=== PATIENT | male | born 1945 | race Caucasian/White ===

== ENCOUNTER 2018-11-07 01:32 | Emergency (ER) | payer MEDICARE, SELFPAY ==
[2018-11-07 01:33] VITALS: BP 147/78; PULSE 76; RESP 20; TEMP 36.6; O2SAT 97; BMI 27.6
--- NOTE | 2018-11-07 01:57 | RAD_ITS ---
STUDY: X-RAY - RIGHT ELBOW REASON FOR EXAM: Male, 72 years old. Trauma. Elbow pain TECHNIQUE: 3 view(s) of the elbow. COMPARISON: None. FINDINGS: Normal visualized humerus and ulna. Normal radiocapitellar and ulnotrochlear articulations. There is an old healed fracture of the proximal metaphysis of the radius. There is soft tissue swelling at the posterior aspect of the elbow suggesting a hematoma or olecranon bursitis. RAD/Elbow min 3 Views IMPRESSION: There is soft tissue swelling at the posterior aspect of the elbow suggesting a hematoma or olecranon bursitis. Electronically Signed: Adela Pal, at 2:43 EDT Tel , Service support ,
--- NOTE | 2018-11-07 01:58 | ED.DCSUM_ITS ---
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 It swelled quickly. He can move it well however and has no limitations. He is on no antiplatelet or anticoagulant medications. No other injuries. [id number]. - Past Medical History (1) Hyperlipidemia Status: Chronic (2) Hypertension Status: Chronic (3) BPH (benign prostatic hyperplasia) Status: Chronic Past Medical History - Allergies and Home Meds Allergies/Adverse Reactions: Allergies Antihistamines - Alkylamine Adverse Reaction (Verified 11/07/18 01:43) Other EXCESSIVE SLEEP W/ALL ANTIHISTAMINES Antihistamines - Ethanolamine Adverse Reaction (Verified 11/07/18 01:43) Other EXCESSIVE SLEEP W/ALL ANTIHISTAMINES Antihistamines - Ethylenediamine Adverse Reaction (Verified 11/07/18 01:43) Other EXCESSIVE SLEEP W/ALL ANTIHISTAMINES Antihistamines - Piperazine Adverse Reaction (Verified 11/07/18 01:43) Other EXCESSIVE SLEEP W/ALL ANTIHISTAMINES Antihistamines - Piperidine Adverse Reaction (Verified 11/07/18 01:43) Other EXCESSIVE SLEEP W/ALL ANTIHISTAMINES Primary Care Physician: Valentine Doctor,Out of [Primary Care Provider] - 1 Week if not improving Lives: Spouse/ Significant Other Smoking Status: Former smoker Review of Systems Musculoskeletal: Reports: Swelling, Extremity Pain. Denies: Neck pain, Back pain Skin: Denies: Rash, Wounds Neurological: Denies: Headache, Weakness, Numbness Physical Exam Vital Signs/Narrative: Vital Signs Temp Pulse Resp BP Pulse Ox 11/07/18 01:33 97.8 F 76 20 H 147/78 H 97 General: Well nourished, Well developed, - - Well-appearing, NAD Head: Normocephalic, Atraumatic Extremeties: Mild tenderness in the soft tissues overlying the right olecranon, which are boggy and swollen. No overlying erythema, rashes, lesions, or signs o f trauma. Skin intact. Full range of motion throughout elbow including extension, flexion, supination, pronation without any pain or bony tenderness. The rest of the right upper extremity exam is normal with no other areas of bony tenderness. Skin: Normal color, No rash, No Trauma Neurological: Alert, Oriented x3, Cranial nerves II-XII grossly intact, Normal Strength - Including median, radial, ulnar nerves right upper extremity, Normal Sensation Psychological: Normal affect, Normal Mood Diagnostic/Tx/Re-eval ED physician interpretation, right elbow x-ray 3 view: Negative for any bony abnormality. Olecranon soft tissue swelling. - Medical Decision Making Reassured this is likely a traumatic bursitis as opposed to a hematoma. Supportive care advised, he is holding an ice pack on it, he declines analgesics. I do not think he will need a sling for this unless the pain gets a lot worse. He will follow-up when he gets home. ED Disposition - Plan for ED Patient: Disposition: Home or Assisted Living Diagnosis: Traumatic bursitis Instructions: Bursitis, Elbow (Olecranon) Referrals: [facility] Doctor,Out of [Primary Care Provider] - 1 Week if not improving
[2018-11-07 02:25] VITALS: BP 143/79; PULSE 81; RESP 20; O2SAT 97
--- NOTE | 2018-11-07 02:26 | ED.RN ---
THIS NURSE REVIEWED D/C INSTRUCTIONS WITH PT. PT VERBALIZED UNDERSTANDING OF INSTRUCTIONS. PT DENIES FURTHER NEEDS OR QUESTIONS AT THIS TIME.
== END 2018-11-07 02:27 | disposition home or self-care (01) ==
LOC: ED 02:23
PROVIDERS: Emergency Provider Emergency Medicine; Family Provider Family Medicine; PCP Family Medicine
DX: M71.521 Other bursitis, not elsewhere classified, right elbow (principal); W01.10XA Fall on same level from slipping, tripping and stumbling with subsequent striking against unspecified object, initial encounter; Y93.89 Activity, other specified; Y92.833 Campsite as the place of occurrence of the external cause; Y99.9 Unspecified external cause status; I10 Essential (primary) hypertension; E78.5 Hyperlipidemia, unspecified; N40.0 Benign prostatic hyperplasia without lower urinary tract symptoms; Z79.899 Other long term (current) drug therapy; Z87.891 Personal history of nicotine dependence
CPT/HCPCS: 73080; 99282

== ENCOUNTER → 2020-04-05 16:32 | Outpatient (CLI) | payer MEDICARE, SELFPAY | PROVIDERS: PCP Family Medicine; Visit Provider Orthopaedic Surgery | DX: Z20.822 Contact with and (suspected) exposure to COVID-19 (principal) ==

== ENCOUNTER → 2020-04-10 10:12 | Outpatient (CLI) | payer MEDICARE, SELFPAY | PROVIDERS: PCP Family Medicine; Referring Provider Orthopaedic Surgery; Visit Provider Orthopaedic Surgery | DX: Z20.822 Contact with and (suspected) exposure to COVID-19 (principal) | CPT/HCPCS: 87635; C9803; U0005; U0003 ==

== ENCOUNTER → 2024-03-07 | Outpatient (CLI) | payer MEDICARE, OTHER, SELFPAY ==
[2024-03-07 12:04] LABS: Absolute Lymphocyte Count 1.79 X10^3/uL (0.83-4.51); Absolute Neutrophil Count 4.9 X10^3/uL (2.0-7.7); Basophil# 0.04 X10^3/uL; Basophil% 0.5 % (0-1); Eosinophil# 0.21 X10^3/uL; Eosinophils% 2.7 % (0-5); Hematocrit 45.3 % (40-54); Hemoglobin 15.8 g/dL (13.0-16.5); Lymphocyte # 1.79 X10^3/ul (0.83-4.51); Mean Corp Hgb Conc 34.9 g/dL (32-36); Mean Platelet Vol. 8.6 fl (6.2-12.0); Monocyte# 0.84 X10^3/uL; Monocyte% 10.8 % (0-10); NRBC Flagged by Analyzer 0 % (0-5); Neutrophil # 4.89 X10^3/uL (2.7-7.7); Neutrophil % 62.7 % (47-70); Platelet Count 222 K/mm3 (150-450); RBC Distribution Width CV 12.3 % (11.6-14.6); RBC Distribution Width SD 38.5 fl (35.1-43.9); Red Blood Count 5.27 M/mm3 (4.6-6.2); White Blood Count 7.8 K/mm3 (4.4-11.0)
[2024-03-07 13:23] LABS: Anion Gap 7 (5-15); BUN 28 mg/dL (7-18); Calcium,Total 9.4 mg/dL (8.5-10.1); Chloride 109 mmol/L (98-107); EST Glomerular Filtration Rate 77 mL/min (>60); Est Glom Filt Rate - Afr Amer 93 mL/min (>60); Glucose 113 mg/dL (74-106); Sodium Level 140 mmol/L (136-145)
== END | disposition home or self-care (01) ==
LOC: LAB 11:42
PROVIDERS: PCP Internal Medicine; Referring Provider Physician Assistant Surgical; Visit Provider Physician Assistant Surgical
DX: Z01.818 Encounter for other preprocedural examination (principal)
CPT/HCPCS: 36415; 80048; 85025